=== PATIENT | female | born 2005 | race Two or more races ===

== ENCOUNTER 2025-04-12 17:35 | Emergency (ER) | payer MEDICAID, SELFPAY ==
[2025-04-12 18:30] VITALS: BP 114/80; PULSE 102; RESP 18; TEMP 36.9; O2SAT 98; BMI 35.2
--- NOTE | 2025-04-12 18:39 | XR_ITS ---
EXAMINATION: PA chest single view TECHNIQUE: Upright PA chest single view Date and time: April 12, 2025, 1853 hours INDICATIONS: Coughing shortness of breath beginning 2 days ago. FINDINGS: Normal heart size Lungs are clear. Intact osseous structures IMPRESSION: No active disease
[2025-04-12 19:04] LABS: Collection Type, Urine Clean Catch
[2025-04-12 19:24] LABS: Bacteria,Urine Rare; Bilirubin,Urine Negative (Negative); Blood,Urine Negative (Negative); Clarity,Urine Turbid (Clear/Hazy); Color,Urine Yellow (Lt Yel-Yel); Glucose, Urine Negative (Negative); Ketones,Urine 3+ (Negative); Leukocyte Esterase,Urine Positive (Negative); Nitrite,Urine Negative (Negative); PH,Urine 6.5 (5.0-7.0); Protein,Urine 1+ (Neg - Trace); RBC,Urine 4 /hpf (0-3); Specific Gravity,Urine 1.037 (1.001-1.035); Squamous Epithelial Cell,Urine 26 /hpf (0-5); Urobilinogen,Urine Negative mg/dL (0.0-1.0); WBC,Urine 20 /hpf (0-5)
[2025-04-12] MEDS: ACETAMINOPHEN 500 MG TABLET 1000 MG PO (19:25)
[2025-04-12] MEDS: ONDANSETRON ODT 4 MG TABRAP PO (19:25)
--- NOTE | 2025-04-12 20:05 | EDNOTE_ITS ---
Upper Respiratory Inf. RME/HPI General Chief Complaint: Flu Like Symptoms Stated Complaint: COUGH, SOB, BODY ACHES X 2 DAYS Time Seen by Provider: 04/12/25 18:17 Source: patient and family Arrival date/time: 04/12/25 17:35 Mode of arrival: ambulatory Limitations: no limitations RME / HPI RME / HPI Narrative: This patient is a pleasant but obese 20-year-old female who arrives to the ED today for evaluation of cough with intermittent shortness of breath and bodyaches for the past 2 days. Patient states the symptoms came on and then unrelenting. Patient states intermittent nausea and vomiting. Patient states possible subjective fever. Patient was mildly tachycardic at arrival. Related Data Previous Rx's ?Medication ?Instructions ?Recorded acetaminophen 500 mg tablet 500 mg PO Q4H PRN fever or pain 04/12/25 (Tylenol Extra Strength) #30 tabs ibuprofen 600 mg tablet (IBU) 600 mg PO Q6H PRN fever or pain 04/12/25 #20 tabs nitrofurantoin 100 mg PO Q12H 7 days #14 ca ps 04/12/25 monohydrate/macrocrystals 100 mg capsule (Macrobid) oseltamivir 75 mg capsule (Tamiflu) 75 mg PO BID 5 day s #10 caps 04/12/25 Allergies Allergy/AdvReac Type Severity Reaction Status Date / Time No Known Allergies Allergy Verified 04/12/25 17:39 Review of Systems Review of Systems Systems Reviewed: All systems reviewed, normal except as documented Past Medical History Social History SMOKING STATUS: Never smoker ED Exam General Limitations: Present no limitations General appearance: Present alert and in distress (Patient looks mild to moderately toxic at time of evaluation.) Head Head exam: Present atraumatic Eye Eye exam: Present normal appearance, PERRL and EOMI ENT ENT exam: Present normal exam, normal oropharynx and mucous membranes moist Neck Neck exam: Present normal inspection, full ROM and trachea midline Chest Chest inspection: Present normal inspection and symmetric chest wall rise Respiratory Respiratory exam: Present normal lung sounds bilaterally Cardiovascular Cardiovascular exam: Present regular rate, normal rhythm and normal heart sounds Abdominal Exam Abdominal exam: Present other (Diffuse bilateral abdominal tenderness to palpation. No pulsatile masses. Difficult to assess due to body habitus.) Extremities Exam Extremities exam: Present normal inspection and full ROM Back Exam Back exam: Present normal inspection and full ROM Neurological Exam Neurological exam: Present alert, oriented X3 and CN II-XII intact Psychiatric Psychiatric exam: Present normal affect and normal mood Skin Skin exam: Present warm, dry, intact and normal color Course Quality Measures none Orders Category Date Time Status Bedside COVID-19 Antigen Test NOW Care 04/12/25 18:38 Active Bedside Influenza A&B Antigen Test NOW Care 04/12/25 18:38 Completed XR chest 1V portable Stat Exams 04/12/25 18:39 Taken UA [Urinalysis] Stat Lab 04/12/25 18:41 Completed Acetaminophen Tab [Tylenol ES Tab] Med 04/12/25 18:38 Discontinued 1,000 mg PO X1 ONE Nitrofurantoin Macro [Macrobid] Med 04/12/25 20:04 Once 100 mg PO X1 ONE Ondansetron Odt [Zofran Odt] Med 04/12/25 18:38 Discontinued 4 mg PO X1 ONE As noted above Vital Signs Vital signs: Vital Signs Temperature 98.5 F 04/12/25 18:30 Pulse Rate 102 H 04/12/25 18:30 Respiratory Rate 18 04/12/25 18:30 Blood Pressure 114/80 04/12/25 18:30 Pulse Oximetry (%) 98 04/12/25 18:30 Oxygen Delivery Method Room Air 04/12/25 18:30 As noted above Upper Respiratory Infection MDM Narrative MDM Narrative:: All studies performed the ED were evaluated by me personally. Swab studies confirmed an influenza A diagnosis and urinalysis confirmed urinary tract infection. Patient was given her first dose of antibiotics for the UTI prior to discharge. Advised patient utilize all medications as directed and to completion as well as additional medications as needed. Good hydration and healthy nutrition throughout. Patient data External records reviewed:: [facility] previous records Clinical information provided by:: patient and family Social determinants that could affect healthcare access:: none Patient has the following chronic illnesses:: None How is presenting disease/condition affected by chronic disease/condition?: no chronic disease Evaluation data The following diagnostics were reviewed and interpreted by me:: lab results Lab and/or radiology exams considered but not ordered:: None Interpretation Summary: Influenza A, UTI Medications / Prescriptions Medications or Prescriptions considered but not ordered:: None Medication administrations:: Medication Administration History Nitrofurantoin Macrocrystals (Nitrofurantoin Macro 100 Mg Capsule) 100 mg PO X1 ONE Stop: 04/12/25 20:05 Discontinued Medications Acetaminophen (Acetaminophen 500 Mg Tablet) 1,000 mg PO X1 ONE Stop: 04/12/25 18:39 Last Admin: 04/12/25 19:25 Dose: 1,000 mg Documented By: Ondansetron HCl (Ondansetron Odt 4 Mg Tabrap) 4 mg PO X1 ONE; Protocol Stop: 04/12/25 18:39 Last Admin: 04/12/25 19:25 Dose: 4 mg Documented By: As noted above Consultations Consultation(s) initiated? (list below): No Diagnosis Upper Respiratory Differential Diagnosis: upper respiratory infection, viral infection, bronchitis, influenza and other (UTI) Most likely diagnosis given after review of the tests above:: Influenza A, UTI Admission Indicated Admission indicated?: not indicated Explain why admission is indicated or not indicated:: Unwarranted Admission Request Was there a request for admission?: No Disposition Plan Disposition Plan: Discharge Discharge Attestation Discharge Attestation: The patient and all family members were given an opportunity to ask questions and understood the discharge instructions. Discharge instructions specifically effects, indications for sooner follow up or return to the emergency department, and the expected course of current diagnosis. Patient condition: Stable Discharge Plan Plan Patient Disposition: HOME (Self Care) Prescriptions/Referrals Prescriptions/Med Rec: New nitrofurantoin monohyd/m-cryst [Macrobid] 100 mg capsule 100 mg PO Q12H 7 Days Qty: 14 0RF Rx Instructions: must administer with a meal/food oseltamivir [Tamiflu] 75 mg capsule 75 mg PO BID 5 Days Qty: 10 0RF acetaminophen [Tylenol Extra Strength] 500 mg tablet 500 mg PO Q4H PRN (Reason: fever or pain) Qty: 30 0RF ibuprofen [IBU] 600 mg tablet 600 mg PO Q6H PRN (Reason: fever or pain) Qty: 20 0RF Referrals: No Primary/Family,Physician [Primary Care Provider] - In 1 week Problem List Clinical Impression: Influenza, UTI (urinary tract infection) Patient/Caregiver Discharge Instructions Education Materials: Urinary Tract Infections in Women, ED Influenza (Adult) Additional Instructions: Advised patient utilize antibiotics as directed to completion as well as additional medication as needed. Good hydration and healthy nutrition throughout. Print Language: Luxem[place]ish Stand Alone Forms: [facility] Award Info., Patient Portal Info Letter
[2025-04-12] MEDS: NITROFURANTOIN MACRO 100 MG CAPSULE PO (20:15)
== END 2025-04-12 20:23 | disposition home or self-care (01) ==
PROVIDERS: Physician Assistant; Emergency Provider Emergency Medicine
DX: J10.1 Influenza due to other identified influenza virus with other respiratory manifestations (principal); N39.0 Urinary tract infection, site not specified; E66.9 Obesity, unspecified; Z68.35 Body mass index [BMI] 35.0-35.9, adult
CPT/HCPCS: 71045; 81001; 87502; 87635; 99283; Q0162; A9270